=== PATIENT | female | born 1950 | race Caucasian/White ===

== ENCOUNTER → 2016-06-05 | Outpatient (CLI) | payer OTHER ==
--- NOTE | 2016-06-05 08:39 | MA ---
Screening Digital Mammogram Clinical Indications: Routine screening. Technique: Standard cephalocaudal and mediolateral oblique projections are obtained. This examinati on is processed by the [employer] computer aided detection system. Comparison: 2007, 2009, 2010, 2011, 2012, 2014 and 2015 Breast density: B; There are scattered fibroglandular densities. Findings: CAD was reviewed. No suspicious findings are identified. Impression: Negative mammogram. BI-RADS 1. Recommendation: Routine screening is recommended in one year. [facility] will send a result letter to the patient. Negative mammography should not preclude additional workup of a clinically suspicious finding. The patient's information is entered into a reminder system with a target due date for her next mammo gram.
== END ==
LOC: BRMIMAGING 07:43
PROVIDERS: ATTEND Specialist
DX: Z12.31 Encounter for screening mammogram for malignant neoplasm of breast (principal)
CPT/HCPCS: G0202

== ENCOUNTER → 2017-06-13 | Outpatient (CLI) | payer OTHER | LOC: BRMIMAGING 08:12 | PROVIDERS: ATTEND Internal Medicine | DX: Z12.31 Encounter for screening mammogram for malignant neoplasm of breast (principal) ==

== ENCOUNTER → 2017-11-26 | Outpatient (CLI) | payer OTHER | LOC: BRMIMAGING 09:48 | PROVIDERS: ATTEND Nurse Practitioner | DX: M17.12 Unilateral primary osteoarthritis, left knee (principal) | CPT/HCPCS: 73562-PO ==

== ENCOUNTER → 2018-04-30 | Outpatient (CLI) | payer OTHER | LOC: BRMIMAGING 15:29 | PROVIDERS: ATTEND Nurse Practitioner | DX: M25.572 Pain in left ankle and joints of left foot (principal); S82.432A Displaced oblique fracture of shaft of left fibula, initial encounter for closed fracture | CPT/HCPCS: 73610-PO ==

== ENCOUNTER → 2018-07-01 | Outpatient (CLI) | payer OTHER | LOC: BRMIMAGING 10:51 | PROVIDERS: ATTEND Internal Medicine | DX: Z12.31 Encounter for screening mammogram for malignant neoplasm of breast (principal) ==

== ENCOUNTER → 2018-07-05 | Outpatient (CLI) | payer OTHER | LOC: BRMIMAGING 09:22 | PROVIDERS: ATTEND Internal Medicine | DX: N60.01 Solitary cyst of right breast (principal) | CPT/HCPCS: 76641-PO ==

== ENCOUNTER → 2018-08-12 | Outpatient (CLI) | payer OTHER | LOC: EMCIMAGING 08:42 | PROVIDERS: ATTEND Nurse Practitioner | DX: K80.20 Calculus of gallbladder without cholecystitis without obstruction (principal); K76.9 Liver disease, unspecified | CPT/HCPCS: 76705-PN ==